=== PATIENT | female | born 1990 | race Caucasian/White ===

== ENCOUNTER 2024-08-18 03:59 | Day surgery (SDC) | payer OTHER ==
[2024-08-16 12:18] VITALS: BMI 24.7
[2024-08-18] MEDS ORDERED: MIDAZOLAM HCL 2 MG/2 ML SINGLE DOSE VIAL ONE (07:54)
[2024-08-18] MEDS ORDERED: PROPOFOL 20 ML ONE ×4 (07:55→09:37)
[2024-08-18] MEDS ORDERED: ONDANSETRON 4 MG/2 ML VIAL ONE (10:02)
[2024-08-18] MEDS ORDERED: DEXAMETHASONE SOD PHOSPHATE 4 MG/1 ML VIAL ONE (10:02)
[2024-08-18] MEDS ORDERED: KETOROLAC TROMETHAMINE 30 MG/1 ML VIAL ONE (10:48)
[2024-08-18] MEDS: KETOROLAC TROMETHAMINE 30 MG/1 ML VIAL IVPUSH ONE (10:50)
[2024-08-18] MEDS: ACETAMINOPHEN 1000 MG/100 ML BAG IVPB ONE (10:51)
[2024-08-18 12:23] VITALS: RESP 18
[2024-08-18 13:11] VITALS: BP 115/72; PULSE 83; TEMP 97.6
== END 2024-08-18 13:05 | disposition home or self-care (01) ==
LOC: JASU-SURG 03:59
PROVIDERS: ATTEND Obstetrics & Gynecology
PROC: 0UB98ZZ Excision of Uterus, Via Natural or Artificial Opening Endoscopic (ICD-10-PCS; principal; 2024-08-18 08:00)
PROC: 0UPD8HZ Removal of Contraceptive Device from Uterus and Cervix, Via Natural or Artificial Opening Endoscopic (ICD-10-PCS; 2024-08-18 08:00)
DX: D25.0 Submucous leiomyoma of uterus (principal)
CPT/HCPCS: 81025; 88300-TC; 88305-TC; 94760; J0131